=== PATIENT | male | born 1985 | race Caucasian/White ===

== ENCOUNTER 2024-10-17 20:42 | Inpatient (IN) | payer SELFPAY ==
[~2024-10-17] VITALS: Ht 182.9 cm; Wt 136.5 kg
[2024-10-17 20:50] VITALS: O2SAT 99
[2024-10-17] MEDS: CLONIDINE 0.3MG TABLET PO ONE (22:01)
[2024-10-17] MEDS: NIFEDIPINE XL 90MG TAB PO ONE (22:02)
[2024-10-17] MEDS: MORPHINE SULFATE 4 MG/ML INJ (FOR IV/IM USE) IV ONE (22:05)
[2024-10-17 22:11] LABS: PARTIAL THROMBOPLASTIN TIME 25.4 sec (23.4-31.0); PROTHROMBIN TIME 10.8 sec (9.6-11.0)
[2024-10-17 22:13] LABS: CHLORIDE 111 mEq/L (98-107); POTASSIUM 4.1 mEq/L (3.5-5.1); SODIUM 149 mEq/L (136-145)
[2024-10-17 22:14] LABS: CARBON DIOXIDE 27 mEq/L (21-32)
[2024-10-17 22:15] LABS: CALCIUM 8.9 mg/dL (8.7-10.4)
[2024-10-17 22:19] LABS: GLUCOSE 93 mg/dL (70-105)
[2024-10-17 22:20] LABS: UREA NITROGEN BLOOD 11 mg/dL (9-23)
[2024-10-17 22:24] LABS: BASOPHILS % 0.6 % (0.0-2.0); EOSINOPHILS % 0.9 % (0.0-5.0); HEMATOCRIT. 42.1 % (42.0-52.0); HEMOGLOBIN. 14.1 g/dL (14.0-18.0); LYMPHOCYTES % 10.2 % (20.0-50.0); MEAN CORPUSCULAR HEMOGLOBIN 26.9 pg (28.0-32.0); MEAN CORPUSCULAR HGB CONC 33.4 g/dL (31.0-37.0); MEAN CORPUSCULAR VOLUME 80.4 fL (80.0-94.0); MEAN PLATELET VOLUME 8.1 fl (7.4-10.4); MONOCYTES % 9.3 % (2.0-8.0); PLATELET 202 x1000/uL (130-400); RED BLOOD CELL COUNT 5.23 mill/uL (4.7-6.1); RED CELL DISTRIBUTION WIDTH 14.8 % (11.6-14.6); WHITE BLOOD COUNT 7.4 x1000/uL (4.5-11.0)
[2024-10-17] MEDS: LORAZEPAM 0.5MG TABLET PO NR (22:30)
[2024-10-17 23:39] LABS: CLARITY URINE CLEAR (CLEAR); COLOR URINE YELLOW (YELLOW); GLUCOSE URINE NEGATIVE (NEGATIVE); KETONES URINE NEGATIVE (NEGATIVE); LEUKOCYTE ESTERASE URINE TRACE (NEGATIVE); NITRITE URINE NEGATIVE (NEGATIVE); OCCULT BLOOD URINE NEGATIVE (NEGATIVE); PH URINE 7.5 (4.5-8.0); PROTEIN URINE NEGATIVE (NEGATIVE)
[2024-10-18 00:10] LABS: BACTERIA URINE NONE SEEN; RBC URINE 0-2 /hpf (0-2); SQUAMOUS EPITHELIAL CELL URINE NONE SEEN /lpf (RARE/1+)
[2024-10-18 00:11] LABS: WBC URINE 0-2 /hpf (0-2)
[2024-10-18 00:28] VITALS: O2SAT 99
[2024-10-18] MEDS ORDERED: *PATIENT'S OWN MEDICATION STORAGE XX SCH (02:00)
[2024-10-18] MEDS ORDERED: METR-167 MT (02:29)
[2024-10-18] MEDS ORDERED: MORP30TA66 MT (02:29)
[2024-10-18] MEDS ORDERED: SERT25TA74 MT (02:29)
[2024-10-18] MEDS ORDERED: GABA-1180 PO (02:29)
[2024-10-18] MEDS ORDERED: ALPR2TAB2 PO (02:29)
[2024-10-18] MEDS ORDERED: LEVO25TA7 MT (02:29)
[2024-10-18] MEDS ORDERED: HYDR1LIQ5 PO (02:29)
[2024-10-18] MEDS ORDERED: CIPR500S3 PO (02:29)
[2024-10-18] MEDS ORDERED: RIVA20TA PO (02:29)
[2024-10-18] MEDS ORDERED: TRAZ-251 PO (02:29)
[2024-10-18] MEDS ORDERED: METH-773 MT (02:29)
[2024-10-18] MEDS ORDERED: SENN8.6T21 PO (02:29)
[2024-10-18] MEDS ORDERED: ARIP10TA86 MT (02:29)
[2024-10-18] MEDS ORDERED: CLON1PAT10 TD (02:29)
[2024-10-18] MEDS ORDERED: IPRATROPIUM/ALBUTEROL 0.5-3(2.5)MG/3ML NEB HHN PRN (02:45)
[2024-10-18] MEDS ORDERED: ACETAMINOPHEN 325MG TABLET PO PRN ×2 (02:45)
[2024-10-18] MEDS ORDERED: DOCUSATE SODIUM 100MG CAPSULE PO PRN (02:45)
[2024-10-18] MEDS ORDERED: GUAIFENESIN 200MG/10ML SUGAR FREE UDC PO PRN (02:45)
[2024-10-18] MEDS ORDERED: CLONIDINE 0.1MG TABLET PO PRN (02:45)
[2024-10-18] MEDS ORDERED: MAGNESIUM/ALUMINUM HYDROXIDE/SIMETHICONE 30ML UDC PO PRN (02:45)
[2024-10-18] MEDS ORDERED: ONDANSETRON HCL 4MG/2ML INJ IV PRN (02:45)
[2024-10-18 03:10] VITALS: BP 94/45; PULSE 67; RESP 17; TEMP 36.5
[2024-10-18] MEDS ORDERED: ALPRAZOLAM 0.5 MG TABLET PO PRN (03:30)
[2024-10-18] MEDS ORDERED: MORPHINE SULFATE 2 MG/ML INJ (NOT FOR IM USE) IV SCH (04:30)
[2024-10-18] MEDS ORDERED: METRONIDAZOLE 500MG TABLET PO SCH (06:00)
[2024-10-18] MEDS ORDERED: LEVOTHYROXINE SODIUM 25MCG TABLET PO SCH (07:20)
[2024-10-18] MEDS ORDERED: PANTOPRAZOLE 40MG DR TABLET PO SCH (07:20)
[2024-10-18] MEDS ORDERED: ARIPIPRAZOLE 5MG TABLET PO SCH (09:00)
[2024-10-18] MEDS ORDERED: SERTRALINE HCL 25MG TABLET PO SCH (09:00)
[2024-10-18] MEDS ORDERED: LEVOFLOXACIN 500MG TABLET PO SCH (09:00)
[2024-10-18] MEDS ORDERED: MORPHINE SULFATE 30MG TABLET SR PO SCH (09:00)
[2024-10-18] MEDS ORDERED: LEVOFLOXACIN 250MG TABLET PO SCH (11:00)
[2024-10-18 15:13] LABS: *AMPHETAMINES SCREEN URINE NEGATIVE (NEGATIVE)
[2024-10-18 15:14] LABS: *BARBITURATES SCREEN URINE NEGATIVE (NEGATIVE); *BENZODIAZEPINES SCREEN URINE PRESUMPTIVE POSITIVE (NEGATIVE); *COCAINE SCREEN URINE NEGATIVE (NEGATIVE); CANNABINOID URINE SCREEN NEGATIVE (NEGATIVE); ECSTASY MDMA SCREEN URINE NEGATIVE (NEGATIVE); METHADONE URINE SCREEN NEGATIVE (NEGATIVE); OPIATES URINE SCREEN PRESUMPTIVE POSITIVE (NEGATIVE); PHENCYCLIDINE URINE SCREEN NEGATIVE (NEGATIVE)
[2024-10-18] MEDS ORDERED: RIVAROXABAN 20 MG TABLET PO SCH (17:00)
[2024-10-18] MEDS ORDERED: TRAZODONE HCL 50MG TABLET PO SCH (21:00)
== END 2024-10-18 05:00 | disposition left against medical advice (07) | DRG 54 ==
LOC: ER 20:42 → 6WST 22:47 → EDBEDREQ 23:04 → ENRESERV 10-18 00:20
PROVIDERS: ADMIT Hospitalist; ATTEND Hospitalist
DX: R51.9 Headache, unspecified (principal); E87.0 Hyperosmolality and hypernatremia; E86.0 Dehydration; E03.9 Hypothyroidism, unspecified; E78.5 Hyperlipidemia, unspecified; F17.210 Nicotine dependence, cigarettes, uncomplicated; F41.9 Anxiety disorder, unspecified; I10 Essential (primary) hypertension; Z53.29 Procedure and treatment not carried out because of patient's decision for other reasons; F32.A Depression, unspecified; M54.9 Dorsalgia, unspecified; Z79.899 Other long term (current) drug therapy; Z79.01 Long term (current) use of anticoagulants; Z86.73 Personal history of transient ischemic attack (TIA), and cerebral infarction without residual deficits; Z87.81 Personal history of (healed) traumatic fracture; Z88.8 Allergy status to other drugs, medicaments and biological substances
CPT/HCPCS: 36415; 80048; 80305; 81003; 85025; 86850; 86900; 99291; J2270